=== PATIENT | male | born 2000 | race Caucasian/White ===

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

== ENCOUNTER 2018-11-26 11:18 | Outpatient (CLI) ==
--- NOTE | 2018-11-26 15:15 | DI ---
EXAM: Two views of the right clavicle HISTORY: Personal history of healed traumatic fracture COMPARISON: 09/23/2015 FINDINGS: Plate and screw fixation of the previously seen clavicle fracture is identified. The hardware is int act. No definite residual fracture line is seen. No acute fracture or dislocation is identified. N o gross soft tissue abnormality is evident. IMPRESSION: No acute osseous abnormality. ORIF of remote, healed clavicle fracture.
== END 2018-11-26 11:19 | disposition home or self-care (01) ==
LOC: RAD 11:18
PROVIDERS: ATTEND Family Medicine
DX: Z87.81 Personal history of (healed) traumatic fracture (principal)